=== PATIENT | female | born 1955 | race Caucasian/White ===

== ENCOUNTER 2020-05-13 12:42 | Emergency (ER) | payer MEDICARE, OTHER ==
[~2020-05-13] VITALS: Ht 157.5 cm; Wt 72.6 kg
--- NOTE | 2020-05-13 12:42 | NUR ---
pt bib rescuefrom work co anxiety, hyperventilating and pressure in the chest.
[2020-05-13] MEDS ORDERED: LORAZEPAM 0.5 MG TABLET PO ONE (12:45)
[2020-05-13] MEDS ORDERED: LORAZEPAM 1 MG TABLET ONE (12:52)
[2020-05-13] MEDS ORDERED: MAGNESIUM CITRATE 296 ML BOTTLE ONE (13:24)
[2020-05-13] MEDS ORDERED: MAGNESIUM HYDROXIDE 30 ML LIQUID UDC ONE (13:24)
[2020-05-13] MEDS ORDERED: MAGNESIUM HYDROXIDE 30 ML LIQUID UDC PO ONE (13:30)
[2020-05-13] MEDS ORDERED: MAGNESIUM CITRATE 296 ML BOTTLE PO ONE (13:30)
--- NOTE | 2020-05-13 13:45 | NUR ---
PT BROTHER CALLED AND TALKED TO Angelo PLUMMER. PT BROTHER MADE AWARE THAT THE PT IS BEING D/PEARL.
--- NOTE | 2020-05-13 13:52 | NUR ---
Patient discharged to home in stable condition. Written and verbal after care instructions given. Patient verbalizes understanding of instructions. Stressed follow up or return to ER for worsening s/s.
--- NOTE | 2020-05-13 13:54 | NUR ---
pt contacting family members to come and pick the pt up.
--- NOTE | 2020-05-13 14:25 | NUR ---
pt seem comfortable on bed, vss.
[2020-05-13 15:19] VITALS: BP 121/44
--- NOTE | 2020-05-13 15:19 | NUR ---
Patient discharged to home in stable condition. Written and verbal after care instructions given. Patient verbalizes understanding of instructions. Stressed follow up or return to ER for worsening s/s.PT WALKS IN STEADY GAIT. PT BROTHER PICKS UP THE PT. PT SAYS FEELS BETTER.
== END 2020-05-13 15:28 | disposition home or self-care (01) ==
LOC: ER 12:42
DX: R06.4 Hyperventilation (principal); F41.9 Anxiety disorder, unspecified; R00.0 Tachycardia, unspecified; K59.00 Constipation, unspecified; Z90.49 Acquired absence of other specified parts of digestive tract
CPT/HCPCS: 74018; 93005; A4663